=== PATIENT | male | born 1950 | race Caucasian/White ===

== ENCOUNTER 2017-07-06 10:46 | Emergency (ER) | payer MEDICARE ==
[~2017-07-06] VITALS: Ht 175.3 cm; Wt 88.5 kg
[~2017-07-06 10:46] MED LIST: ASTAPRO; CIALIS5 MG PO; DULERA 200 MCG/13 GM; DULERA 200 MCG/13 GM INH; FLOMAX0.4 MG PO; IBUPROFEN 800800 M1 PO; NORCO 5-325 TA1 EACH PO; ONDANSETRON HCL4 M2 PO; PERCOCET PO; PROMETHAZINE12.5 M4 RE; PROVENTIL HFA6.7 G1; TAMSULOSIN HCL0.4 M1 PO; UNKNOWN ANTIBIOTIC; ZANTAC 150MG T150 MG PO; ZYFLO 600 MG600 M1
[2017-07-06 11:23] LABS: ABSOLUTE BASOPHILS 0.1 thou/uL (0.0-0.2); ABSOLUTE EOSINOPHILS 0.3 thou/uL (0.0-0.7); ABSOLUTE LYMPHOCYTES 2.2 thou/uL (0.8-5.3); ABSOLUTE MONOCYTES 1.2 thou/uL (0.0-1.2); ABSOLUTE NEUTROPHILS 7.9 thou/uL (1.6-8.1); BASOPHILS 0.7 %; EOSINOPHILS 2.3 %; HEMATOCRIT 48.6 % (42.0-52.0); HEMOGLOBIN 16.2 gm/dL (14.0-18.0); LYMPHOCYTES 19.2 %; MCH 30.7 pg (26.0-34.0); MCHC 33.4 g/dL (28.0-37.0); MCV 91.7 fL (80.0-100.0); MONOCYTES 10.3 %; MPV 8.8 fl. (7.2-11.1); NUCLEATED RBCS 0 /100WBC; PLATELET COUNT* 160 thou/uL (150-400); POLYS 67.5 %; WBC 11.7 thou/uL (4.0-11.0)
[2017-07-06 11:32] LABS: CALCIUM 10.2 mg/dL (8.5-10.1); CREATININE 1.4 mg/dL (0.6-1.3); POTASSIUM 3.9 mmol/L (3.5-5.1)
[2017-07-06 11:37] LABS: ALBUMIN 3.6 g/dL (3.4-5.0); TOTAL BILIRUBIN 0.8 mg/dL (<0.1-1.0); TOTAL PROTEIN 7.4 g/dL (6.4-8.2)
[2017-07-06 12:47] LABS: URINE BILIRUBIN NEGATIVE (Negative); URINE BLOOD 3+ (Negative); URINE CLARITY CLEAR; URINE COLOR YELLOW; URINE GLUCOSE-RANDOM NEGATIVE (Negative); URINE KETONES TRACE (Negative); URINE LEUKOCYTES-REFLEX NEGATIVE (Negative); URINE NITRITE-REFLEX NEGATIVE (Negative); URINE PROTEIN NEGATIVE (Negative); URINE UROBILINOGEN 0.2 E.U./dl (0.2-1.0)
[2017-07-06 12:58] LABS: URINE RBC >20 Many /HPF (0-2); URINE WBC-REFLEX 0-5 Rare /HPF (0-5)
[2017-07-06 12:59] LABS: BACTERIA-REFLEX None Seen /HPF (None Seen); CASTS None Seen /LPF (None Seen); CRYSTALS None Seen /LPF (None Seen); MUCUS None Seen strn/LPF (None Seen); SQUAMOUS NONE SEEN /LPF (0-3)
[2017-07-06] MEDS ORDERED: PHENERGAN 25 MG25 M1 PO (14:15)
[2017-07-06] MEDS ORDERED: PHENERGAN25 M1 RECTAL (14:15)
[2017-07-06] MEDS ORDERED: TORADOL 10 MG T10 MG PO (14:15)
[2017-07-06 14:32] VITALS: BP 98/66
== END 2017-07-06 14:34 | disposition home or self-care (01) ==
LOC: M.ERS 10:46
PROVIDERS: Personal Emergency Response Attendant
DX: N23 Unspecified renal colic (principal); J45.909 Unspecified asthma, uncomplicated; Z87.442 Personal history of urinary calculi; Z96.649 Presence of unspecified artificial hip joint; Z98.890 Other specified postprocedural states; Z88.1 Allergy status to other antibiotic agents

== ENCOUNTER → 2019-01-20 | Outpatient (CLI) | payer MEDICARE, OTHER ==
[~2019-01-20] MED LIST changes: +PHENERGAN 25 MG25 M1 PO; +PHENERGAN25 M1 RECTAL; +TORADOL 10 MG T10 MG PO
== END ==
LOC: M.RAD 15:14
DX: M47.816 Spondylosis without myelopathy or radiculopathy, lumbar region (principal); M77.51 Other enthesopathy of right foot and ankle; G89.29 Other chronic pain; Z68.29 Body mass index [BMI] 29.0-29.9, adult